=== PATIENT | female | born 1980 | race Caucasian/White ===

== ENCOUNTER 2021-08-28 09:02 | Inpatient (IN) ==
[2021-08-28] MEDS ORDERED: MEPERIDINE 50 MG/1 ML VIAL IV PRN (09:36)
[2021-08-28] MEDS ORDERED: ONDANSETRON 4 MG/2 ML VIAL IV PRN ×2 (09:36→21:08)
[2021-08-28] MEDS ORDERED: BUTORPHANOL 2 MG/ML VIAL IV PRN (09:36)
[2021-08-28 10:02] LABS: Basophils # 0.1 10*3/uL (0.0-0.2); Basophils % 0.7 % (0.0-0.8); Eosinophils # 0.1 10*3/uL (0.0-0.87); Eosinophils % 1.3 % (0.00-10.9); Hematocrit 33.2 VOL% (35.7-47.0); Lymphocytes # 2.4 10*3/uL (1.4-4.0); Lymphocytes % 22.9 % (21.3-54.2); Mean Corpuscular HGB Conc 33.1 GM/DL (32-36); Mean Corpuscular Volume 88.3 FL (87-102); Mean Platelet Volume 9.6 FL (9.6-12.0); Monocytes % 7.3 % (1.7-12.7); Neutrophils % 66.8 % (38.7-73.9); Platelet Count 223 T/CUMM (130-400); Red Blood Count 3.76 MC/CUMM (3.8-5.5); Red Cell Distribution Width 12.5 % (9.3-17.3); White Blood Count 10.3 T/CUMM (4-12)
[2021-08-28] MEDS ORDERED: CITRIC ACID/SODIUM CITRATE 30 ML UDCUP PO ONE (10:09)
[2021-08-28] MEDS ORDERED: FAMOTIDINE 20 MG/2 ML VIAL IV ONE (10:09)
[2021-08-28] MEDS ORDERED: LACTATED RINGERS 1,000 ML IV ONE (10:09)
[2021-08-28] MEDS ORDERED: NALOXONE 0.4 MG/ML VIAL IV PRN (10:10)
[2021-08-28] MEDS ORDERED: ONDANSETRON 4 MG/2 ML VIAL IV ONE (10:10)
[2021-08-28] MEDS ORDERED: diphenhydrAMINE 50 MG/1 ML VIAL IV PRN (10:10)
[2021-08-28] MEDS ORDERED: LACTATED RINGERS 250 ML IV PRN (10:10)
[2021-08-28] MEDS: LACTATED RINGERS 1,000 ML IV SCH ×3 (10:34→12:06)
[2021-08-28 10:39] LABS: Albumin 2.3 G/DL (3.4-5.0); Bilirubin,Total 0.4 MG/DL (0.20-1.00); Calcium 8.5 MG/DL (8.5-10.1); Osmolality,Calculated 273.7 MOS/KG (273-304); Potassium 3.9 MMOL/L (3.5-5.1); Total Protein 6.1 G/DL (6.4-8.2)
[2021-08-28] MEDS: fentaNYL 2 MCG/ROPIV 0.2% EPID 100 ML EPIDURAL SCH ×2 (11:25→19:34)
[2021-08-28] MEDS ORDERED: ePHEDrine 50 MG/ML VIAL IV ONE (11:46)
[2021-08-28] MEDS: ePHEDrine 50 MG/ML VIAL IV PRN ×3 (12:00→12:03)
[2021-08-28] MEDS ORDERED: OXYTOCIN/LR 20 UNIT/1,000 ML BAG IV SCH (12:00)
[2021-08-28 13:05] LABS: Bilirubin,Urine Negative (Negative); Blood, Urine Negative (Negative); Glucose,Urine (UA) Negative (Negative); Ketones,Urine Negative (Negative); Nitrite,Urine Negative (Negative); Protein,Urine Negative; Urine Appearance CLEAR (Clear); Urine Color Straw (Yellow); Urine Specific Gravity 1.006 (1.001-1.035); Urine Urobilinogen < 2.0 EU/DL (0.2-1.0)
[2021-08-28] MEDS ORDERED: METHYLERGONOVINE 0.2 MG/1 ML AMP IM PRN (19:22)
[2021-08-28] MEDS ORDERED: fentaNYL 100 MCG/2 ML VIAL ONE (19:22)
[2021-08-28] MEDS ORDERED: CARBOPROST TROMETHAMINE 250 MCG/ML AMP IM PRN (19:22)
[2021-08-28] MEDS ORDERED: TRANEXAMIC ACID 1,000 MG in SODIUM CHLORIDE 0.9% 100 ML IV PRN (19:22)
[2021-08-28] MEDS ORDERED: miSOPROStoL 200 MCG TABLET VAG PRN (19:22)
[2021-08-28] MEDS ORDERED: miSOPROStoL 200 MCG TABLET ONE (19:37)
[2021-08-28] MEDS ORDERED: TRANEXAMIC ACID 1,000 MG/10 ML VIAL ONE (19:37)
[2021-08-28] MEDS ORDERED: OXYTOCIN/LR 20 UNIT/1,000 ML BAG IV ONE ×2 (19:38→21:08)
[2021-08-28] MEDS ORDERED: CARBOPROST TROMETHAMINE 250 MCG/ML AMP IM ONE (19:38)
[2021-08-28] MEDS ORDERED: OXYTOCIN 10 UNIT/ML VIAL ONE (19:38)
[2021-08-28] MEDS ORDERED: METHYLERGONOVINE 0.2 MG/1 ML AMP ONE (19:38)
[2021-08-28] MEDS ORDERED: LIDOCAINE 1% 50 ML VIAL ONE (19:39)
[2021-08-28 21:08] LABS: Cord Arterial Blood HCO3 17.3 MMOL/L
[2021-08-28] MEDS ORDERED: BISACODYL 10 MG SUPP RECTAL PRN (21:08)
[2021-08-28] MEDS ORDERED: DIPH/TET/ACEL PERT BOOSTER VACCINE 0.5 ML VIAL IM ONE (21:08)
[2021-08-28] MEDS ORDERED: MEASLES/MUMPS/RUBELLA VACCINE 0.5 ML VIAL SUBCUT ONE (21:08)
[2021-08-28] MEDS ORDERED: LANOLIN 50% CREAM 0.3 OZ TUBE TOP PRN (21:08)
[2021-08-28] MEDS ORDERED: WITCH HAZEL PADS 100/JAR TOP PRN (21:08)
[2021-08-28] MEDS ORDERED: oxyCODONE/ACETAMINOPHEN 5-325 MG TABLET PO PRN (21:08)
[2021-08-28] MEDS ORDERED: BENZOCAINE 20%/MENTHOL 0.5% SPRAY 56 GM CAN TOP PRN (21:08)
[2021-08-28] MEDS ORDERED: ACETAMINOPHEN 325 MG TABLET PO PRN (21:08)
[2021-08-28] MEDS ORDERED: RHO(D) IMMUNE GLOBULIN 300 MCG SYRINGE IM ONE (21:08)
[2021-08-28] MEDS ORDERED: HYDROCORTISONE 2.5% RECTAL CREAM 30 GM TUBE TOP PRN (21:08)
[2021-08-28 21:11] LABS: Cord Venous Blood HCO3 18.8 MMOL/L; Cord Venous Blood PCO2 44.5 MMHG; Cord Venous Blood PO2 27.4
[2021-08-28] MEDS: IBUPROFEN 800 MG TABLET PO PRN (23:29)
[2021-08-28] MEDS: oxyCODONE/ACETAMINOPHEN 5-325 MG TABLET PO PRN (23:30)
[2021-08-29 05:58] LABS: Basophils # 0.1 10*3/uL (0.0-0.2); Basophils % 0.4 % (0.0-0.8); Eosinophils # 0.1 10*3/uL (0.0-0.87); Eosinophils % 0.7 % (0.00-10.9); Hemoglobin 9.6 GM/DL (12.0-16.0); Immature Granulocytes % 0.7 %; Lymphocytes # 3.2 10*3/uL (1.4-4.0); Lymphocytes % 22.7 % (21.3-54.2); Mean Corpuscular HGB Conc 33.1 GM/DL (32-36); Mean Corpuscular Volume 90.9 FL (87-102); Mean Platelet Volume 9.8 FL (9.6-12.0); Monocytes % 9.2 % (1.7-12.7); Neutrophils % 66.3 % (38.7-73.9); Platelet Count 185 T/CUMM (130-400); Red Blood Count 3.19 MC/CUMM (3.8-5.5); Red Cell Distribution Width 12.5 % (9.3-17.3)
[2021-08-29] MEDS: FERROUS SULFATE 325 MG TABLET PO SCH (07:31)
[2021-08-29] MEDS: oxyCODONE/ACETAMINOPHEN 5-325 MG TABLET PO PRN ×3 (07:31→19:45)
[2021-08-29] MEDS ORDERED: MAGNESIUM HYDROXIDE SUSP 30 ML UDCUP PO PRN (14:10)
[2021-08-29] MEDS ORDERED: MAGNESIUM CITRATE 300 ML BOTTLE PO ONE (19:16)
[2021-08-29] MEDS ORDERED: SIMETHICONE CHEW 125 MG TABLET PO PRN (19:16)
[2021-08-29] MEDS: IBUPROFEN 800 MG TABLET PO PRN (19:45)
[2021-08-29] MEDS: DOCUSATE SODIUM 100 MG CAPSULE PO SCH (19:46)
[2021-08-30] MEDS: DOCUSATE SODIUM 100 MG CAPSULE PO SCH ×2 (00:28→08:24)
[2021-08-30] MEDS: FERROUS SULFATE 325 MG TABLET PO SCH ×2 (00:29→08:24)
[2021-08-30] MEDS: IBUPROFEN 800 MG TABLET PO PRN (08:25)
[2021-08-30] MEDS: oxyCODONE/ACETAMINOPHEN 5-325 MG TABLET PO PRN (08:39)
[2021-08-30 09:33] VITALS: BP 124/69
== END 2021-08-30 12:29 | disposition home or self-care (01) | DRG 560 ==
LOC: N.LDOUT 09:02 → N.LD 09:04 → N.OB 23:50
PROVIDERS: ADMIT Obstetrics & Gynecology; ATTEND Obstetrics & Gynecology